=== PATIENT | female | born 1950 | race Caucasian/White ===

== ENCOUNTER 2024-12-14 07:13 | Day surgery (SDC) | payer MEDICARE, OTHER, SELFPAY ==
[2024-12-08 11:53] VITALS: BMI 28.3
[2024-12-14] MEDS: LACTATED RINGERS 1,000 ML 84 ML IV (08:03)
[2024-12-14 08:04] VITALS: BP 126/77; PULSE 78; RESP 16; TEMP 36.8; O2SAT 95; BMI 27.4
--- NOTE | 2024-12-14 08:14 | PM.PREOP ---
Pre-operative Note Interval Note History & Physical reviewed/Exam performed by Physician: Yes Changes to H&P: No H&P completed within 30 days and has changed as indicated here:: Heart regular rhythm and rate. Breathing unlabored on room air. Left upper extremity in a splint. Stable to demonstrate sensation median radial ulnar nerve distributions wiggles her fingers and flexes and extends thumb IP joint minimally due to extent of sugar-tong splint out towards her fingers. Denies other injuries other than forearm fracture.
--- NOTE | 2024-12-14 08:56 | PM.OP.1 ---
Operative Date/Time/Diagnoses Date of procedure: 12/14/24 Time of procedure: 08:56 Pre-op diagnosis: Radial shaft fracture left Post-op diagnosis: same Procedure & Clinicians Procedure: Open reduction internal fixation left radial shaft fracture CPT code 08418 Same procedure(s) as scheduled: Yes Indications: The patient is a 74-year-old left-hand dominant female that fell walking her dog[place] [facility] [place] permanently in [place]. She is visiting family. She has been indicated for open reduction internal fixation of her radial shaft fracture. She denies other injuries. She was originally seen in clinic by my physician partner Dr. Haddad. Due to surgery schedules and timing and anesthesia needs. I have agreed to perform her surgery today. The risks and benefits of the procedure have been discussed with the patient and given the opportunity to ask questions. The risks of surgery include but are not limited to infection, malunion, nonunion, persistence of pain, damage to nerves and blood vessels, posttraumatic arthritis, DVT, PE, coardiopulmonary complications and . The patient expressed a thorough understanding of the risks and benefits of surgery and has elected to proceed. Consent was signed. She has a history of osteoporosis. She does take vitamin-D supplementation. She does not smoke. Surgeon: Ginger Khan Click Yes if Unassisted: Yes Anesthesia Type: General, Peripheral nerve block and Local Operative Notes Findings: Displaced left radial shaft fracture junction of middle and distal 1/3 Specimen(s): none sent Applied: implant(s) (Arthrex 3.5 LCDC plate 8 hole) Estimated Blood Loss (mL): 20 Blood products transfused: none Tourniquet time (min): 33 Procedure in detail: The patient is seen in the preoperative area and the site of surgery was marked informed consent confirmed this was the left arm. Patient was seen by the anesthesia team regional block was applied. She was taken to the surgical suite and positioned supine on the operative table. General anesthetic was administered. A well-padded nonsterile brachial tourniquet was applied. The left upper extremity was prepped and draped in the standard sterile fashion. A formal time-out procedure was performed confirming the patient's side and site of surgery administration of the appropriate preoperative antibiotic. All were in agreement implants were in the room and accounted for. Attention turned to the left upper extremity the Esmarch was utilized for exsanguination the tourniquet raised to 250 mmHg. The planned volar Aron approach incision was marked out in line from the radial styloid towards the distal biceps tendon and marked out approximately 10 cm centered on the level of the fracture. Skin incision was made and taken through the skin subcutaneous tissue. The brachioradialis was mobilized radially in the interval between the brachioradialis and FCR was developed. Care was taken to identify and protect the superficial radial nerve branch and the radial artery. Dissection was taken down onto the radial shaft. The fracture was identified and irrigated and cleaned. Fracture was then reduced using reduction clamps and checked for alignment on x-ray then a Arthrex 3.5 locking compression plate was applied confirming at 4 screw holes distal and proximal to the fracture site this was then positioned in place and secured initially with nonlocking screws followed by locking screws confirming 4 screws fixation distal and 3 screws proximal to the fracture. Screw length and alignment of the fracture was confirmed on intraoperative fluoroscopy. Full pronation and supination were achieved. Then the tourniquet was released hemostasis was achieved and the wound was closed in a layered fashion with 2-0 Vicryl 4-0 Monocryl and 3-0 nylon suture. Local anesthetic was administered for postoperative pain control. A well-padded volar splint was applied and the patient was awoken from anesthesia and taken to the recovery room in good condition there were no immediate complications from this procedure. Counts were correct. Complications: none Post-operative Plan for aftercare: 2 lb weight limit on the left upper extremity and may move fingers as tolerated. We will organize a custom removable splint with occupational therapy. Sutures will remain in place 2 weeks. Discussed nylon sutures can remain longer if there is any need. After 2 weeks start coming out of the splint more often for range of motion strengthening and progressive weight-bearing we will start after 6 weeks. Full healing and recovery can take 6-12 months.
[2024-12-14] MEDS: CEFAZOLIN 2 GM/100 ML PREMIX 100 ML IV (09:04)
--- NOTE | 2024-12-14 09:06 | SUR.PREOP ---
Block time out 8:48. Block start time 8:52 . Monitoring initiated and maintained throughout procedure. Oxygen and medications given per anesthesiologist instructions. Patient remained stable throughout procedure, no adverse reactions noted. Block end time 8:57.
--- NOTE | 2024-12-14 09:16 | SUR.OPER ---
Supine on padded OR bed, head on pillow, right arm secured on padded arm boards at <90 degrees abduction, legs uncrossed, safety belt at thigh.
[2024-12-14] MEDS: BUPIVACAINE 0.25% W/ EPI 30 ML VIAL 60 ML INJ (09:39)
[2024-12-14 10:37] VITALS: BP 142/66; PULSE 75; RESP 16; TEMP 36.1; O2SAT 95
[2024-12-14 10:42] VITALS: BP 142/62; PULSE 72; RESP 18; TEMP 36.1; O2SAT 94
[2024-12-14 11:00] VITALS: BP 132/70; PULSE 73; RESP 18; TEMP 36.2; O2SAT 95
--- NOTE | 2024-12-14 14:21 | SUR.PHASEII ---
1130 Pt DC to home with dtr after amb to [facility] and assisting pt to dress. Steady on feet. Sling in place.
== END 2024-12-14 11:30 | disposition home or self-care (01) ==
PROVIDERS: Referring Provider Orthopaedic Surgery Foot and Ankle Surgery; Visit Provider Orthopaedic Surgery Foot and Ankle Surgery
PROC: (CPT 25515; principal; 2024-12-14 08:45)
DX: S52.322A Displaced transverse fracture of shaft of left radius, initial encounter for closed fracture (principal); W19.XXXA Unspecified fall, initial encounter; Y93.K1 Activity, walking an animal; M81.0 Age-related osteoporosis without current pathological fracture; G89.18 Other acute postprocedural pain
CPT/HCPCS: 25515; 64450; C1713; J0690; J1100; J2405; J2704; J3010